=== PATIENT | male | born 1990 | race Two or more races ===

== ENCOUNTER 2023-05-31 03:56 | Emergency (ER) | payer MEDICAID ==
[~2023-05-31] VITALS: Ht 177.8 cm; Wt 77.0 kg
[2023-05-31 04:32] VITALS: O2SAT 100
[2023-05-31] MEDS ORDERED: CEFTRIAXONE SODIUM 500 MG/VIAL IM ONE (06:45)
[2023-05-31] MEDS ORDERED: AZITHROMYCIN 500 MG TABLET PO ONE (06:45)
[2023-05-31] MEDS ORDERED: KETOROLAC 60MG/2ML VIAL IM ONE (07:00)
[2023-05-31] MEDS ORDERED: ACETAMINOPHEN 325MG TABLET PO ONE (07:00)
[2023-05-31] MEDS ORDERED: DOXY100C5 MT (07:30)
[2023-05-31] MEDS ORDERED: IBUP-1523 MT (07:30)
[2023-05-31] MEDS ORDERED: TOPUD MT (07:30)
[2023-05-31 07:46] VITALS: BP 142/97; PULSE 82; RESP 19; TEMP 98.1
[2023-06-02 07:08] LABS: CHLAMYDIA TRACHOMATIS NAA Negative (Negative); NEISSERIA GONORRHOEAE NAA Positive (Negative)
== END 2023-05-31 07:47 | disposition home or self-care (01) ==
LOC: ER 03:56
DX: A64 Unspecified sexually transmitted disease (principal)
CPT/HCPCS: 87491; 87591; 96372; 99284; J0696; J1885; Z7610 ×2